=== PATIENT | female | born 1965 | race African-American/Black ===

== ENCOUNTER 2016-10-17 08:35 | Inpatient (IN) | payer OTHER ==
[2016-10-17 09:48] VITALS: BMI 21.6
--- NOTE | 2016-10-17 10:55 | HP ---
CIWA Score - CIWA Score Nausea/Vomitin-No Nausea/No Vomiting Muscle Tremors: 5 Anxiety: 1-Mildly Anxious Agitation: 4-Moderately Restless Paroxysmal Sweats: 2 Orientation: 0-Oriented Tacttile Disturbances: 3-Moderate Itch/Numb/Burn Auditory Disturbances: 0-None Visual Disturbances: 0-None Headache: 0-None Present CIWA-Ar Total Score: 15 Admission ROS BHS - HPI Chief Complaint: DETOX TX FOR ALCOHOL DEPENDENC Allergies/Adverse Reactions: Allergies Allergy/AdvReac Type Severity Reaction Status Date / Time No Known Allergies Allergy Verified 10/17/16 10:12 History of Present Illness: 51 Y/O AA/FEMALE WITH A HX OF ALCOHOL AND CRACK DEPENDENCE SEEKING DETOX TX Exam Limitations: No Limitations - Ebola screening Have you traveled outside of the country in the last 21 days: No Have you had contact with anyone from an Ebola affected area: No Have you been sick,other than usual withdrawal symptoms: No Do you have a fever: No - Review of Systems Constitutional: Chills, Night Sweats, Changes in sleep, Unintentional Wgt. Loss EENT: reports: Blurred Vision, Nose Congestion, Dental Problems (MISSING TEETH) Respiratory: reports: Cough, Shortness of Breath, Wheezing (HX ASTHMA), Productive cough Cardiac: reports: Lightheadedness GI: reports: Diarrhea, Poor Fluid Intake : reports: Frequency Musculoskeletal: reports: Joint Pain Integumentary: reports: No Symptoms Reported Neuro: reports: Headache, Tremors, Unsteady Gait Endocrine: reports: No Symptoms Reported Hematology: reports: Anemia Psychiatric: reports: Orientated x3, Anxious Other Systems: Reviewed and Negative Patient History - Patient Medical History Hx Anemia: Yes (NOT CURRENTLY ON MEDS) Hx Asthma: Yes (MDI) Hx Chronic Obstructive Pulmonary Disease (COPD): No Hx Cardiac Disorders: No Hx Hypertension: No Hx Hypercholesterolemia: No HX Cerebrovascular Accident: No Hx Seizures: No Hx Diabetes: No Hx Gastrointestinal Disorders: No Hx Genitourinary Disorders: No Hx Sexually Transmitted Disorders: No Hx Renal Disease (ESRD): No Hx Thyroid Disease: No Hx Human Immunodeficiency Virus (HIV): No (NEGATIVE HX) Hx Hepatitis C: No Hx Depression: Yes (NOT CURRENTLY SINCE 3 MONTHS) Hx Suicide Attempt: No (DENIES) Hx Bipolar Disorder: No Hx Schizophrenia: No - Patient Surgical History Past Surgical History: No Hx Neurologic Surgery: No Hx Cataract Extraction: No Hx Cardiac Surgery: No Hx Lung Surgery: No Hx Breast Surgery: No Hx Breast Biopsy: No Hx Abdominal Surgery: No Hx Appendectomy: No Hx Cholecystectomy: No Hx Genitourinary Surgery: No Hx Section: No Hx Orthopedic Surgery: No Hx Hysterectomy: No Anesthesia Reaction: No - PPD History Previous Implant?: Yes Documented Results: Negative w/o proof Implanted On Prior [facility] Admission?: No PPD to be Administered?: Yes - Reproductive History Patient is a Female of Child Bearing Age (11 -55 yrs old): Yes LMP comment: 2011 Patient : No - Smoking Cessation Smoking history: Current every day smoker Have you smoked in the past 12 months: Yes Aproximately how many cigarettes per day: 10 Hx Chewing Tobacco Use: No Initiated information on smoking cessation: Yes 'Breaking Loose' booklet given: 10/17/16 - Substance & Tx. History Hx Alcohol Use: Yes (VODKA) Hx Substance Use: Yes (CRACK) Substance Use Type: Alcohol, Cocaine Hx Substance Use Treatment: No - Substances Abused Crack Route: Smoking Frequency: Daily Amount used: $400 Age of first use: 29 Date of Last Use: 10/15/16 ETOH Route: Oral Frequency: Daily Amount used: 3 PINTS VODKA Age of first use: 14 Date of Last Use: 10/15/16 Family Disease History - Family Disease History Family Disease History: CA: Father, Other: Mother (HTN) Admission Physical Exam BHS - Vital Signs Vital Signs: Vital Signs - 24 hr 10/17/16 09:45 Temperature 97.1 F L Pulse Rate 85 Respiratory 20 Rate Blood Pressure 99/77 - Physical General Appearance: Yes: Moderate Distress, Irritable, Anxious HEENTM: Yes: EOMI, Normocephalic, ROCHELLE, Pharynx Normal Respiratory: Yes: Chest Non-Tender, Lungs Clear, Normal Breath Sounds, No Respiratory Distress Neck: Yes: Supple, Trachea in good position Breast: Yes: Breast Exam Deferred Cardiology: Yes: Regular Rhythm, Regular Rate, S1, S2 Abdominal: Yes: Normal Bowel Sounds, Non Tender, Soft Genitourinary: Yes: Other (N/C) Back: Yes: Within Normal Limits Musculoskeletal: Yes: full range of Motion, Gait Steady Extremities: Yes: Normal Range of Motion, Non-Tender Neurological: Yes: rollout manager II-XII NML intact, Fully Oriented, Alert Integumentary: Yes: Dry, Warm Lymphatic: Yes: Within Normal Limits - Diagnostic (1) Alcohol dependence with uncomplicated withdrawal Current Visit: Yes Status: Acute (2) Cocaine dependence, uncomplicated Current Visit: Yes Status: Acute (3) History of anemia Current Visit: Yes Status: Chronic (4) History of depression Current Visit: Yes Status: Chronic Comment: NO MEDS X 3 MONTHS (5) Asthma Current Visit: Yes Status: Chronic Qualifiers: Asthma severity: mild intermittent Asthma complication type: uncomplicated Qualified Code(s): J45.20 - Mild intermittent asthma, uncomplicated Cleared for Admission [facility] - Detox or Rehab [facility] Level of Care: Medically Managed Detox Regimen/Protocol: Librium [facility] Breath Alcohol Content Breath Alcohol Content: 0 Urine Pregancy Test - Result Urine Test Results: Negative- NO Line Present Urine Drug Screen - Results Urine Drug Screen Results: QUOC-Cocaine, BZO-Benzodiazepines
[2016-10-17] MEDS ORDERED: chlordiazePOXIDE HCL 25 MG CAPSULE PO PRN (11:05)
[2016-10-17] MEDS ORDERED: hydrOXYzine PAMOATE 25 MG CAPSULE (FP) PO PRN (11:05)
[2016-10-17] MEDS ORDERED: MAGNESIUM CITRATE 300 ML BOTTLE PO PRN (11:05)
[2016-10-17] MEDS ORDERED: NICOTINE POLACRILEX 2 MG GUM BUC PRN (11:05)
[2016-10-17] MEDS ORDERED: LOPERAMIDE HCL 2 MG CAPSULE PO PRN (11:05)
[2016-10-17] MEDS ORDERED: MAG HYDROX/AL HYDROX/SIMETH 30 ML UNIT-DOSE CUP PO PRN (11:05)
[2016-10-17] MEDS ORDERED: MENTHOL/PHENOL 1 EACH UD MM PRN (11:05)
[2016-10-17] MEDS ORDERED: diphenhydrAMINE HCL 50 MG CAPSULE PO PRN (11:05)
[2016-10-17] MEDS ORDERED: MAGNESIUM HYDROX 2400MG/30ML ORAL SUSPENSION 30 ML CUP PO PRN (11:05)
[2016-10-17] MEDS ORDERED: P-EPHED 60MG/TRIPROLIDI 2.5MG TABLET PO PRN (11:05)
[2016-10-17] MEDS ORDERED: ALBUTEROL SO4 6.7 GM HFA INHALER IH SCH (11:15)
[2016-10-17] MEDS: guaiFENesin/D-METHORPHAN HB 10 ML UNIT-DOSE CUPS PO PRN ×3 (12:45→22:54)
[2016-10-17] MEDS: NICOTINE 14 MG/24 HOURS TOPICAL PATCH TD SCH (12:45)
[2016-10-17] MEDS: chlordiazePOXIDE HCL 25 MG CAPSULE PO SCH ×3 (12:45→22:51)
[2016-10-17] MEDS: BUDESONIDE/FORMETEROL FUMARATE 80/4.5 mcg INHALER IH SCH ×2 (14:48→22:51)
[2016-10-17 16:35] LABS: PH,URINE 5.5 (5.0-8.0); URINE APPEARANCE CLEAR; URINE BILIRUBIN NEGATIVE (NEGATIVE); URINE BLOOD NEGATIVE (NEGATIVE); URINE COLOR LT. YELLOW; URINE GLUCOSE (UA) NEGATIVE (NEGATIVE); URINE KETONE NEGATIVE (NEGATIVE); URINE LEUK ESTERASE NEGATIVE (NEGATIVE); URINE NITRITE NEGATIVE (NEGATIVE); URINE PROTEIN NEGATIVE (NEGATIVE); URINE UROBILINOGEN 0.2 E.U/dl E.U./dl (0.2-1.0)
[2016-10-17] MEDS: THIAMINE HCL 100 MG TABLET (FP) PO SCH (22:50)
--- NOTE | 2016-10-17 23:58 | EKG ---
Test Reason : Blood Pressure : / mmHG Vent. Rate : 084 BPM Atrial Rate : 084 BPM P-R Int : 118 ms QRS Dur : 072 ms QT Int : 350 ms P-R-T Axes : 084 057 062 degrees QTc Int : 413 ms NORMAL SINUS RHYTHM SEPTAL INFARCT , AGE UNDETERMINED ABNORMAL ECG NO PREVIOUS ECGS AVAILABLE Confirmed by IRMA MORALES MD ([id number]) on 10/17/2016 11:57:47 PM Referred By: Asad Vital Confirmed By:IRMA MORALES MD
[2016-10-18] MEDS: chlordiazePOXIDE HCL 25 MG CAPSULE PO SCH ×4 (05:40→22:15)
[2016-10-18] MEDS: guaiFENesin/D-METHORPHAN HB 10 ML UNIT-DOSE CUPS PO PRN ×2 (05:41→17:48)
--- NOTE | 2016-10-18 08:25 | CONSULT ---
[facility] Psychiatric Consult - Data Date of interview: 10/18/16 Admission source: [facility] Identifying data: This is 51 years old male with no psychiatric hospitalization history intoxicated with Alcohol, Crack, Nicotine Substance Abuse History: Smoking history: Current every day smoker. Have you smoked in the past 12 months: Yes. Aproximately how many cigarettes per day: 10. Hx Chewing Tobacco Use: No. Initiated information on smoking cessation: Yes. 'Breaking Loose' booklet given: 10/17/16. - Substance & Tx. History. Hx Alcohol Use: Yes (VODKA). Hx Substance Use: Yes (CRACK). Substance Use Type: Alcohol, Cocaine. Hx Substance Use Treatment: No. - Substances Abused. Crack. Route: Smoking. Frequency: Daily. Amount used: $400. Age of first use : 29. Date of Last Use: 10/15/16. ETOH. Route: Oral. Frequency: Daily. Amount used: 3 PINTS VODKA. Age of first use: 14. Date of Last Use: 10/15/16 Medical History: Asthma, Anemia history Psychiatric History: Patient reports to carry Schizoaffective disorder, reports taking prior to admission: Risperdal 1mg po bid. Celexa 40mg poqd Physical/Sexual Abuse/Trauma History: Denies Additional Comment: Risperdal 1mg po bid. Celexa 40mg poqd Mental Status Exam - Mental Status Exam Alert and Oriented to: Person Cognitive Function: Fair Patient Appearance: Unkempt Mood: Sad Affect: Flat Patient Behavior: Sedated Speech Pattern: Delayed Voice Loudness: Mildly Soft/Quiet Thought Process: Goal Oriented Thought Disorder: Being Controlled Hallucinations: Denies Suicidal Ideation: Denies Homicidal Ideation: Denies Insight/Judgement: Fair Sleep: Difficulty falling asleep Appetite: Fair Muscle strength/Tone: Normal Gait/Station: Shuffling Additional Comments: Risperdal 1mg po bid. Celexa 40mg poqd Psychiatric Findings - Problem List ([place] 1, 2,3) (1) Alcohol dependence with uncomplicated withdrawal Current Visit: Yes Status: Acute (2) Cocaine dependence, uncomplicated Current Visit: Yes Status: Acute (3) History of depression Current Visit: Yes Status: Chronic Comment: NO MEDS X 3 MONTHS (4) Schizoaffective disorder Current Visit: Yes Status: Acute - Initial Treatment Plan Initial Treatment Plan: Risperdal 1mg po bid. Celexa 40mg poqd
--- NOTE | 2016-10-18 09:40 | PN ---
S CIWA - CIWA Score Nausea/Vomitin-No Nausea/No Vomiting Muscle Tremors: 3 Anxiety: 3 Agitation: 3 Paroxysmal Sweats: 3 Orientation: 0-Oriented Tacttile Disturbances: 0-None Auditory Disturbances: 0-None Visual Disturbances: 0-None Headache: 1-Very Mild CIWA-Ar Total Score: 13 S Progress Note (SOAP) Subjective: sweats shakes interrupted sleep irritable headache Objective: 10/18/16 09:39 Vital Signs Temperature 96.8 F L 10/18/16 05:57 Pulse Rate 90 10/18/16 05:57 Respiratory Rate 18 10/18/16 05:57 Blood Pressure 112/56 10/18/16 05:57 O2 Sat by Pulse Oximetry (%) Laboratory Tests 10/17/16 14:00 Urine Color Lt. yellow Urine Appearance Clear Urine pH 5.5 Ur Specific [place] >= 1.030 Urine Protein Negative Urine Glucose (UA) Negative Urine Ketones Negative Urine Blood Negative Urine Nitrite Negative Urine Bilirubin Negative Urine Urobilinogen 0.2 e.u/dl Ur Leukocyte Esterase Negative labs pending awake/alert ambulating no acute distress Assessment: 10/18/16 09:39 withdrawal sx Plan: continue detox increase fluids labs pending
[2016-10-18 10:16] LABS: MCH 30.6 pg (25.7-33.7); MCHC 32.8 g/dl (32.0-36.0); MEAN CELL VOLUME 93.1 fl (80-96); MEAN PLT VOLUME 9.7 fl (7.5-11.1); PLATELET COUNT 249 K/MM3 (134-434); WHITE BLOOD COUNT 6.9 K/mm3 (4.0-10.0)
[2016-10-18] MEDS: PRENATAL VITAMINS W/ FOLIC ACID TABLET (FP) PO SCH (10:20)
[2016-10-18] MEDS: BUDESONIDE/FORMETEROL FUMARATE 80/4.5 mcg INHALER IH SCH ×2 (10:20→22:15)
[2016-10-18] MEDS: risperiDONE 1 MG TABLET (FP) PO SCH ×2 (10:25→22:15)
[2016-10-18] MEDS: CITALOPRAM HYDROBROMIDE 20 MG TABLET (FP) PO SCH (10:25)
[2016-10-18] MEDS: NICOTINE 14 MG/24 HOURS TOPICAL PATCH TD SCH (10:27)
[2016-10-18 10:37] LABS: ALBUMIN 3.4 g/dl (3.4-5.0); BILIRUBIN,TOTAL 0.2 mg/dL (0.2-1.0); CALCIUM 9.1 mg/dL (8.5-10.1); CREATININE 1.1 mg/dL (0.55-1.02)
[2016-10-18 11:28] LABS: SICKLE CELL SCREEN NEGATIVE (NEGATIVE)
[2016-10-18] MEDS: THIAMINE HCL 100 MG TABLET (FP) PO SCH (22:15)
[2016-10-19] MEDS: chlordiazePOXIDE HCL 25 MG CAPSULE PO SCH (06:02)
[2016-10-19] MEDS: guaiFENesin/D-METHORPHAN HB 10 ML UNIT-DOSE CUPS PO PRN (06:17)
[2016-10-19] MEDS: PRENATAL VITAMINS W/ FOLIC ACID TABLET (FP) PO SCH (10:14)
[2016-10-19] MEDS: BUDESONIDE/FORMETEROL FUMARATE 80/4.5 mcg INHALER IH SCH ×2 (10:14→22:47)
[2016-10-19] MEDS: risperiDONE 1 MG TABLET (FP) PO SCH ×2 (10:14→22:47)
[2016-10-19] MEDS: CITALOPRAM HYDROBROMIDE 20 MG TABLET (FP) PO SCH (10:14)
[2016-10-19] MEDS: NICOTINE 14 MG/24 HOURS TOPICAL PATCH TD SCH (10:15)
[2016-10-19] MEDS: IBUPROFEN 400 MG TABLET (FP) PO PRN ×2 (10:40→17:41)
[2016-10-19] MEDS: chlordiazePOXIDE 5 MG CAPSULE PO SCH ×3 (11:00→22:47)
--- NOTE | 2016-10-19 11:54 | PN ---
S CIWA - CIWA Score Nausea/Vomitin-Mild Nausea/No Vomiting Muscle Tremors: 2 Anxiety: 3 Agitation: 2 Paroxysmal Sweats: 1-Minimal Palms Moist Orientation: 0-Oriented Tacttile Disturbances: 0-None Auditory Disturbances: 0-None Visual Disturbances: 0-None Headache: 2-Mild CIWA-Ar Total Score: 11 S Progress Note (SOAP) Objective: 10/19/16 11:53 Laboratory Tests 10/17/16 10/18/16 10/18/16 14:00 06:00 06:00 WBC 6.9 RBC 4.54 Hgb 13.9 Hct 42.2 MCV 93.1 MCHC 32.8 RDW 14.0 Plt Count 249 MPV 9.7 Sickle Cell Screen Negative Sodium 143 Potassium 4.3 Chloride 109 H Carbon Dioxide 26 Anion Gap 8 BUN 21 H Creatinine 1.1 H Creat Clearance w eGFR 52.36 Random Glucose 113 H Calcium 9.1 Total Bilirubin 0.2 AST 19 ALT 35 Alkaline Phosphatase 85 Total Protein 6.0 L Albumin 3.4 Urine Color Lt. yellow Urine Appearance Clear Urine pH 5.5 Ur Specific [place] >= 1.030 Urine Protein Negative Urine Glucose (UA) Negative Urine Ketones Negative Urine Blood Negative Urine Nitrite Negative Urine Bilirubin Negative Urine Urobilinogen 0.2 e.u/dl Ur Leukocyte Esterase Negative RPR Titer 10/18/16 06:00 WBC RBC Hgb Hct MCV MCHC RDW Plt Count MPV Sickle Cell Screen Sodium Potassium Chloride Carbon Dioxide Anion Gap BUN Creatinine Creat Clearance w eGFR Random Glucose Calcium Total Bilirubin AST ALT Alkaline Phosphatase Total Protein Albumin Urine Color Urine Appearance Urine pH Ur Specific [place] Urine Protein Urine Glucose (UA) Urine Ketones Urine Blood Urine Nitrite Urine Bilirubin Urine Urobilinogen Ur Leukocyte Esterase RPR Titer Nonreactive Vital Signs - 24 hr 10/18/16 10/18/16 10/18/16 14:35 18:00 22:41 Temperature 97 F L 98.1 F 98.2 F Pulse Rate 106 H 78 82 Respiratory 18 18 18 Rate Blood Pressure 109/65 110/67 108/75 10/19/16 10/19/16 10/19/16 00:30 03:30 06:32 Temperature 98.2 F Pulse Rate 104 H Respiratory 18 18 20 Rate Blood Pressure 100/59 Assessment: 10/19/16 11:53 ongoing withdrawal Plan: continue detox protocol
[2016-10-19] MEDS ORDERED: ALBUTEROL SO4 2.5/IPRATROPIUM 0.5 INH SOL 3 ML VIAL.NEB. NEB PRN (15:59)
[2016-10-19] MEDS: THIAMINE HCL 100 MG TABLET (FP) PO SCH (22:47)
[2016-10-19] MEDS: ACETAMINOPHEN 325 MG TABLET (FP) PO PRN (22:49)
[2016-10-20] MEDS: chlordiazePOXIDE 5 MG CAPSULE PO SCH (05:31)
[2016-10-20] MEDS: IBUPROFEN 400 MG TABLET (FP) PO PRN (08:56)
[2016-10-20] MEDS: chlordiazePOXIDE HCL 10 MG CAPSULE PO SCH ×3 (10:34→22:22)
[2016-10-20] MEDS: CITALOPRAM HYDROBROMIDE 20 MG TABLET (FP) PO SCH (10:34)
[2016-10-20] MEDS: PRENATAL VITAMINS W/ FOLIC ACID TABLET (FP) PO SCH (10:35)
[2016-10-20] MEDS: NICOTINE 14 MG/24 HOURS TOPICAL PATCH TD SCH (10:35)
[2016-10-20] MEDS: risperiDONE 1 MG TABLET (FP) PO SCH ×2 (10:35→22:23)
[2016-10-20] MEDS: BUDESONIDE/FORMETEROL FUMARATE 80/4.5 mcg INHALER IH SCH ×2 (10:35→22:21)
--- NOTE | 2016-10-20 14:07 | PN ---
S Progress Note (SOAP) Subjective: ALERT,IRRITABLE,ANXIOUS,INTERRUPTED SLEEP Objective: 10/20/16 14:06 Vital Signs Temperature 97.7 F 10/20/16 14:00 Pulse Rate 93 H 10/20/16 14:00 Respiratory Rate 18 10/20/16 14:00 Blood Pressure 102/54 10/20/16 14:00 O2 Sat by Pulse Oximetry (%) Assessment: 10/20/16 14:06 WITHDRAWAL SYMPTOM Plan: CONTINUE DETOX,DISCHARGE IN AM
[2016-10-20] MEDS: ACETAMINOPHEN 325 MG TABLET (FP) PO PRN (18:04)
[2016-10-20] MEDS: THIAMINE HCL 100 MG TABLET (FP) PO SCH (22:22)
[2016-10-21] MEDS: chlordiazePOXIDE HCL 10 MG CAPSULE PO SCH (05:22)
[2016-10-21 07:22] VITALS: BP 96/70; PULSE 105; TEMP 96.7
--- NOTE | 2016-10-21 08:48 | PN ---
S Progress Note (SOAP) Subjective: ALERT,NO COMPLAINT Objective: 10/21/16 08:46 Vital Signs Temperature 96.7 F L 10/21/16 06:00 Pulse Rate 105 H 10/21/16 06:00 Respiratory Rate 18 10/21/16 06:00 Blood Pressure 96/70 10/21/16 06:00 O2 Sat by Pulse Oximetry (%) Assessment: 10/21/16 08:46 DETOX COMPLETED,NO WITHDRAWAL SYMPTOM Plan: DISCHARGE TODAY,FOLLOW UP WITH AFTER CARE PROGRAM ARRANGEMENT
--- NOTE | 2016-10-21 08:50 | DS ---
[facility] Detox Discharge Summary Admission Date: 10/17/16 Discharge Date: 10/21/16 - History Present History: Alcohol Dependence, Cocaine Dependence Additional Comments: FOLLOW UP WITH AFTER CARE PROGRAM ARRANGEMENT AND PMD FOR MEDICAL PROBLEM Pertinent Past History: ANEMIA ASTHMA DEPRESSION - Physical Exam Results Vital Signs: Vital Signs Temperature 96.7 F L 10/21/16 06:00 Pulse Rate 105 H 10/21/16 06:00 Respiratory Rate 18 10/21/16 06:00 Blood Pressure 96/70 10/21/16 06:00 O2 Sat by Pulse Oximetry (%) - Treatment Hospital Course: Detox Protocol Followed, Detoxed Safely, Responded well, Discharged Condition Good Patient has Accepted a Rehab Referral to: DECLINED - Medication Discharge Medications: Ambulatory Orders Albuterol Sulfate Inhaler - [Ventolin HFA Inhaler -] 2 puff PO PRN 10/17/16 Citalopram Hydrobromide [Celexa -] 40 mg PO DAILY #30 tablet 10/18/16 Risperidone [Risperdal -] 1 mg PO BID #60 tablet 10/18/16 - AMA Did Patient Leave Against Medical Advice: No
== END 2016-10-21 09:41 | disposition home or self-care (01) | DRG 774 ==
LOC: YASAS 08:35 → Y6N 11:15
PROVIDERS: ADMIT Internal Medicine Addiction Medicine; ATTEND Internal Medicine Addiction Medicine
PROC: HZ2ZZZZ Detoxification Services for Substance Abuse Treatment (ICD-10-PCS; principal; 2016-10-17)
DX: F10.230 Alcohol dependence with withdrawal, uncomplicated (principal); F14.20 Cocaine dependence, uncomplicated; F17.210 Nicotine dependence, cigarettes, uncomplicated; F25.9 Schizoaffective disorder, unspecified; J45.20 Mild intermittent asthma, uncomplicated; Z86.2 Personal history of diseases of the blood and blood-forming organs and certain disorders involving the immune mechanism; Z86.59 Personal history of other mental and behavioral disorders
CPT/HCPCS: 36415; 80053; 81003; 85027; 85660; 86593; 93005; 93010; J2794